=== PATIENT | female | born 1955 ===

== ENCOUNTER 2017-04-29 08:03 | Emergency (ER) | payer OTHER ==
[2017-04-29 08:04] VITALS: BMI 32.1
[2017-04-29 08:17] VITALS: RESP 18; TEMP 98.3; O2SAT 98
--- NOTE | 2017-04-29 08:22 | ED PDOC ---
Arrival/HPI - General Chief Complaint: Chest Pain Time Seen by Provider: 04/29/17 08:15 Historian: Patient - History of Present Illness Narrative History of Present Illness (Text): 04/29/17 08:19 A 61 year old female, whose past medical history includes hypertension and hypothyroidism, presents to the emergency department complaining of left sided chest wall pain since last night. Patient reports taking Motrin at approximately 06:30 this morning, with mild improvement of symptom. Patient denies any trauma, injury, fever, chills, nausea, vomiting, abdominal pain, shortness of breath or any other complaints. Time/Duration: Other (last night) Symptom Course: Improving Quality: Other Context: Home Past Medical History - Provider Review Nursing Documentation Reviewed: Yes - Cardiac Hx Cardiac Disorders: Yes Hx Hypertension: Yes Other/Comment: MITRAL VALVE [id number] - Pulmonary Hx Respiratory Disorders: No - Neurological Hx Neurological Disorder: No Other/Comment: MINI STROKE 2015 - HEENT Hx HEENT Disorder: No Hx Cataracts: Yes Other/Comment: PARTIAL VISION RIGHT EYE - Renal Hx Renal Disorder: No - Endocrine/Metabolic Hx Endocrine Disorders: No Hx Hyperthyroidism: Yes Hx Hypothyroidism: Yes - Hematological/Oncological Hx Blood Disorders: No - Integumentary Hx Dermatological Disorder: No - Musculoskeletal/Rheumatological Hx Musculoskeletal Disorders: No - Gastrointestinal Hx Gastrointestinal Disorders: No - Genitourinary/Gynecological Hx Genitourinary Disorders: No - Psychiatric Hx Emotional Abuse: No Hx Physical Abuse: No Hx Substance Use: No - Surgical History Hx Cataract Extraction: Yes (right) Hx Cardiac Catheterization: Yes Hx Open Heart Surgery: Yes (2014) Other/Comment: MITRAL VALVE REPLACEMENT;LE FT EYE SURGERY - Anesthesia Hx Anesthesia: Yes Hx Anesthesia Reactions: No Hx Malignant Hyperthermia: No - Suicidal Assessment Feels Threatened In Home Enviroment: No Family/Social History - Physician Review Nursing Documentation Reviewed: Yes Family/Social History: No Known Family HX Smoking Status: Former Smoker Hx Alcohol Use: No Hx Substance Use: No Allergies/Home Meds Allergies/Adverse Reactions: Allergies No Known Allergies Allergy (Verified 04/08/16 07:44) Home Medications: Home Meds Medication Instructions Recorded Confirmed Aspirin [Lo-Dose Aspirin EC] 81 mg PO DAILY 04/09/16 04/29/17 Atorvastatin Calcium 20 mg PO HS 04/09/16 04/29/17 Levothyroxine Sodium [Unithroid] 125 mcg PO DAILY 04/09/16 04/29/17 Metoprolol Tartrate [Lopressor] 1 tab PO BID 04/09/16 04/29/17 Review of Systems - Physician Review All systems were reviewed & negative as marked: Yes - Review of Systems Constitutional: absent: Fevers, Night Sweats Respiratory: absent: SOB Cardiovascular: Other (left sided chest wall pain) Gastrointestinal: absent: Abdominal Pain, Nausea, Vomiting Physical Exam Vital Signs Reviewed: Yes Vital Signs Temp Pulse Resp BP Pulse Ox 04/29/17 08:50 64 18 139/88 98 04/29/17 08:14 98.3 F 69 18 137/76 98 Temperature: Afebrile Blood Pressure: Normal Pulse: Regular Respiratory Rate: Normal Appearance: Positive for: Well-Appearing, Non-Toxic, Comfortable Pain Distress: None Mental Status: Positive for: Alert and Oriented X 3 - Systems Exam Head: Present: Atraumatic, Normocephalic Pupils: Present: PERRL Extroacular Muscles: Present: EOMI Conjunctiva: Present: Normal Mouth: Present: Moist Mucous Membranes Neck: Present: Normal Range of Motion Respiratory/Chest: Present: Clear to Auscultation, Good Air Exchange, Tender to Palpation (reproducible chest wall tenderness under left breast). No: Respiratory Distress, Accessory Muscle Use Cardiovascular: Present: Regular Rate and Rhythm, Normal S1, S2. No: Murmurs Abdomen: Present: Normal Bowel Sounds. No: Tenderness, Distention, Peritoneal Signs Back: Present: Normal Inspection Upper Extremity: Present: Normal Inspection. No: Cyanosis, Edema Lower Extremity: Present: Normal Inspection. No: Edema Neurological: Present: GCS=15, CN II-XII Intact, Speech Normal Skin: Present: Warm, Dry, Normal Color. No: Rashes Psychiatric: Present: Alert, Oriented x 3, Normal Insight, Normal Concentration Medical Decision Making ED Course and Treatment: 04/29/17 08:18 Impression: A 61 year old female with left sided chest wall pain. Patient report she has not taken her Metoprolol or baby Aspirin today. Plan: -- Labs -- Toradol, Metoprolol and Aspirin -- Reassess and disposition Progress Notes: - Lab Interpretations Lab Results: 04/29/17 08:15 04/29/17 08:15 Lab Results 04/29/17 08:15: Sodium 143, Potassium 4.1, Chloride 106, Carbon Dioxide 27, Anion Gap 14, BUN 12, Creatinine 0.6 L, Est GFR ( Amer) > 60, Est GFR ( Non-Af Amer) > 60, Random Glucose 107, Calcium 9.5, Total Bilirubin 0.5, AST 40 H D, ALT 60 H, Alkaline Phosphatase 75, Troponin I < 0.01, Total Protein 7.3, Albumin 4.0, Globulin 3.3, Albumin/Globulin Ratio 1.2 04/29/17 08:15: WBC 6.0, RBC 4.75, Hgb 13.8, Hct 40.5, MCV 85.3, MCH 29.1, MCHC 34.1, RDW 14.3, Plt Count 219, MPV 11.2 H, Gran % 56.5, Lymph % (Auto) 30.0, Cassia % (Auto) 8.5 H, Eos % (Auto) 4.0, Baso % (Auto) 1.0, Gran # 3.39, Lymph # ( Auto) 1.8, Cassia # (Auto) 0.5, Eos # (Auto) 0.2, Baso # (Auto) 0.06 - Medication Orders Current Medication Orders: Discontinued Medications Aspirin (Aspirin) 325 mg PO STAT STA Stop: 04/29/17 08:22 Last Admin: 04/29/17 08:50 Dose: 325 mg Ketorolac Tromethamine (Toradol) 30 mg IVP STAT STA Stop: 04/29/17 08:23 Last Admin: 04/29/17 08:50 Dose: 30 mg MAR Pain Assessment Document 04/29/17 08:50 Jessica ([facility] 08[id number] Pain Reassessment Is this a pain reassessment? No Sleep Is patient sleeping during reassessment? No Presence of Pain Presence of Pain Yes IVP Administration Document 04/29/17 08:50 STEFANY (Rec: 04/29/17 08:[id number] Charges for Administration # of IVP Administrations 1 Metoprolol Tartrate (Lopressor) 25 mg PO STAT STA Stop: 04/29/17 08:20 Last Admin: 04/29/17 08:50 Dose: 25 mg Disposition/Present on Arrival - Present on Arrival Any Indicators Present on Arrival: No History of DVT/PE: No History of Uncontrolled Diabetes: No Urinary Catheter: No History of Decub. Ulcer: No History Surgical Site Infection Following: None - Disposition Have Diagnosis and Disposition been Completed?: Yes Diagnosis: Chest wall pain Disposition: HOME/ ROUTINE Disposition Time: 10:00 Patient Plan: Discharge Patient Problems: Current Active Problems Problem Status Onset Chest wall pain Acute Condition: STABLE Discharge Instructions (ExitCare): Chest Pain (ED), Chest Pain That Is Not Caused by the Heart (DC) Referrals: [facility], [Non-Staff] - Follow up with primary Forms: [employer] ([place])
[2017-04-29 08:27] LABS: BASO # 0.06 K/mm3 (0.0-2.0); EOS # 0.2 (0.0-0.7); GRAN # 3.39 (1.4-6.5); GRAN % 56.5 % (50.0-68.0); HEMOGLOBIN 13.8 g/dL (12.0-16.0); LYMPH # 1.8 (1.2-3.4); MEAN CELL VOLUME 85.3 fl (80.0-105.0); MEAN CORPUSCULAR HEMOGLOBIN 29.1 pg (25.0-35.0); MEAN CORPUSCULAR HGB CONC 34.1 g/dl (31.0-37.0); MEAN PLATELET VOLUME 11.2 fl (7.0-11.0); MONO # 0.5 (0.1-0.6); MONO % 8.5 % (1.0-6.0); RBC 4.75 10^6/uL (3.5-6.1); RED CELL DISTRIBUTION WIDTH 14.3 % (11.5-14.5)
[2017-04-29 08:41] LABS: ALB/GLOB RATIO 1.2 (1.1-1.8); ALT/SGPT 60 U/L (7-56); AST/SGOT 40 U/L (14-36); BLOOD UREA NITROGEN 12 mg/dL (7-21); CALCIUM 9.5 mg/dL (8.4-10.5); GFR AFRICAN-AMERICAN > 60; GFR NON-AFRICAN AMERICAN > 60
[2017-04-29 09:10] LABS: TROPONIN I < 0.01 ng/mL
[2017-04-29 09:32] VITALS: BP 139/88; PULSE 64
--- NOTE | 2017-04-29 12:31 | CARD ---
APPROVED REPORT EKG Measurement Heart [id number] <Conclusion> Normal sinus rhythm Nonspecific T wave abnormality Abnormal ECG
== END 2017-04-29 10:15 | disposition home or self-care (01) ==
LOC: ED 08:03
DX: R07.89 Other chest pain (principal); I10 Essential (primary) hypertension; Z86.73 Personal history of transient ischemic attack (TIA), and cerebral infarction without residual deficits; Z95.2 Presence of prosthetic heart valve; Z87.891 Personal history of nicotine dependence
CPT/HCPCS: 80053; 84484; 85025; 93005; 96374; 99284; J1885